=== PATIENT | male | born 1970 | race Caucasian/White ===

== ENCOUNTER → 2016-08-02 | Outpatient (REF) | payer OTHER | LOC: M SFHCPLAZ 11:11 | PROVIDERS: ATTEND Family Medicine | DX: Z11.59 Encounter for screening for other viral diseases (principal); Z11.4 Encounter for screening for human immunodeficiency virus [HIV] ==

== ENCOUNTER → 2016-08-12 | Outpatient (CLI) | payer OTHER | LOC: M SMT 10:23 | PROVIDERS: ATTEND Physician Assistant Medical | DX: E11.9 Type 2 diabetes mellitus without complications (principal); E55.9 Vitamin D deficiency, unspecified; E78.2 Mixed hyperlipidemia ==

== ENCOUNTER → 2017-02-18 | Outpatient (REF) | payer OTHER ==
[~2017-02-18] MED LIST: CORE10CA PO; CYCL10TA PO; JARD1TAB PO; METF500T13 PO; OMEP40CA2 PO; PERC5TAB12 PO; RAMI10CA PO
[2017-02-18 12:00] LABS: ANION GAP 9 MEQ/L (8-16); BLOOD UREA NITROGEN 17 MG/DL (7-18); CALCIUM LEVEL 8.9 MG/DL (8.5-10.1); CARBON DIOXIDE LEVEL 28 MEQ/L (21-32); CHLORIDE LEVEL 106 MEQ/L (98-107); CREATININE FOR GFR 1.06 MG/DL (0.70-1.30); GLOMERULAR FILTRATION RATE > 60.0 (>60); GLUCOSE, FASTING 145 MG/DL (70-105); POTASSIUM SERUM 4.1 MEQ/L (3.5-5.1); SODIUM LEVEL 143 MEQ/L (136-145)
== END ==
LOC: M LABDRAW1 08:45
PROVIDERS: ATTEND Physician Assistant Medical
DX: E11.9 Type 2 diabetes mellitus without complications (principal)

== ENCOUNTER 2017-02-19 11:02 | Emergency (ER) | payer OTHER ==
[~2017-02-19] VITALS: Ht 185.4 cm; Wt 132.5 kg
[2017-02-19] MEDS ORDERED: METF500T13 PO (11:41)
[2017-02-19] MEDS ORDERED: OMEP40CA2 PO (11:41)
[2017-02-19] MEDS ORDERED: JARD1TAB PO (11:41)
[2017-02-19] MEDS ORDERED: CORE10CA PO (11:41)
[2017-02-19] MEDS ORDERED: RAMI10CA PO (11:41)
[2017-02-19] MEDS ORDERED: MORPHINE 4 MG/ML 1ML SYRINGE IV ONE (12:15)
--- NOTE | 2017-02-19 13:22 | REP ---
Lumbar spine series: Five views. History: Low back pain. Comparison study June 26, 2015. Findings: Five views of the lumbar spine show preserved vertebral body heights and normal alignment. There is degenerative disc narrowing with discogenic spurring at L4-5 and L3-4, unchanged from the comparison study. Minimal discogenic spurring is seen at the upper lumbar levels. Pedicles and posterior elements are intact. There is no evidence of spondylolysis or spondylolisthesis. Psoas margins are symmetric. Sacrum and SI joints are unremarkable. Impression: Degenerative disc changes at L3-4 and L4-5 unchanged from comparison radiography June 26, 2015. Signed by Jean Ardnt MD 02/19/2017 06:33 P
[2017-02-19] MEDS ORDERED: PERC5TAB12 PO (13:23)
[2017-02-19] MEDS ORDERED: CYCL10TA PO (13:33)
[2017-02-19 13:34] VITALS: BP 121/68
== END 2017-02-19 13:36 | disposition home or self-care (01) ==
LOC: M ED 11:02
DX: M54.5 Low back pain (principal); M51.36 Other intervertebral disc degeneration, lumbar region; I48.91 Unspecified atrial fibrillation; E11.9 Type 2 diabetes mellitus without complications; I10 Essential (primary) hypertension; Z79.84 Long term (current) use of oral hypoglycemic drugs; Z79.899 Other long term (current) drug therapy

== ENCOUNTER → 2017-07-28 | Outpatient (REF) | payer OTHER | LOC: M SFHCPLAZ 16:02 | DX: L57.0 Actinic keratosis (principal) ==

== ENCOUNTER → 2017-08-29 | Outpatient (REF) | payer OTHER ==
[2017-08-29 11:55] LABS: ANION GAP 10 MEQ/L (8-16); BLOOD UREA NITROGEN 18 MG/DL (7-18); CALCIUM LEVEL 8.8 MG/DL (8.5-10.1); CARBON DIOXIDE LEVEL 27 MEQ/L (21-32); CHLORIDE LEVEL 105 MEQ/L (98-107); CHOLESTEROL LEVEL 185 MG/DL (<200); CHOLESTEROL RISK RATIO 6.607 (<5); CREATININE FOR GFR 0.87 MG/DL (0.70-1.30); GLOMERULAR FILTRATION RATE > 60.0 (>60); GLUCOSE, FASTING 141 MG/DL (70-100); HDL CHOLESTEROL 28 MG/DL (>40); NON-HDL-C 157 MG/DL; SODIUM LEVEL 142 MEQ/L (136-145); TRIGLYCERIDES LEVEL 280 MG/DL (<150)
[2017-08-29 12:38] LABS: TOTAL 25(OH) VITAMIN D 46.7 NG/ML (30.0-100.0)
== END ==
LOC: M LABDRAW1 09:38
DX: E55.9 Vitamin D deficiency, unspecified (principal); E11.9 Type 2 diabetes mellitus without complications
CPT/HCPCS: 84443

== ENCOUNTER 2017-11-13 03:32 | Emergency (ER) | payer OTHER ==
[2017-11-13] MEDS: dexameTHASONE 20 MG/5 ML VIAL (J1100) IV (03:58)
[2017-11-13] MEDS: diphenhydrAMINE INJ 50MG/ML VIAL (J1200) IV (03:58)
== END 2017-11-13 05:29 | disposition home or self-care (01) ==
LOC: M ED 03:32
DX: T78.40XA Allergy, unspecified, initial encounter (principal); I48.91 Unspecified atrial fibrillation; E11.9 Type 2 diabetes mellitus without complications; I10 Essential (primary) hypertension; E78.5 Hyperlipidemia, unspecified; Z79.01 Long term (current) use of anticoagulants; Z79.899 Other long term (current) drug therapy
CPT/HCPCS: J1200

== ENCOUNTER → 2019-02-03 | Outpatient (CLI) | payer OTHER ==
[~2019-02-03] MED LIST changes: +ELIQ5TAB; +LOVA40TA; -RAMI10CA PO; +RAMI1CAP26 PO
--- NOTE | 2019-02-03 12:29 | REP ---
CERVICAL SPINE SERIES: REASON FOR EXAM: Upper extremity radicular symptoms. No history of trauma whatsoever. There are no priors for comparison. FINDINGS: Seven views of the cervical spine show no acute fracture, dislocation or subluxation. The intervertebral disc spaces are symmetric and well maintained. The facet joints are well aligned bilaterally. The intervertebral foramina are patent bilaterally and the neural canal is not encroached upon. There is no destructive osseous lesion. Flexion and extension does not appear to be particularly limited radiographically. The anterior spinal soft tissues appear unremarkable. The dens cannot be effectively evaluated secondary to the superimposition of osseous structures and/or dentition on all views. Although this plain radiographic evaluation of the cervical spine shows no evidence of a fracture, it should be remembered that CT is much more sensitive than plain radiography of the C-spine in detecting fractures. If this examination was ordered to rule out a fracture, then CT of the cervical spine is recommended. IMPRESSION: Unremarkable cervical spine series. Electronically Signed by Sourav Vora DO 02/03/2019 12:41 P
== END ==
LOC: M ADAMS 10:11
PROVIDERS: ATTEND Family Medicine
DX: M54.12 Radiculopathy, cervical region (principal)

== ENCOUNTER → 2019-02-23 | Outpatient (CLI) | payer OTHER ==
--- NOTE | 2019-02-23 09:58 | REP ---
MRI of the cervical spine without contrast Indication: Cervical radiculopathy. Comparison: Cervical spine series of 02/03/2019. Technique: MRI of the cervical spine was performed utilizing sagittal T1 FLAIR, STIR, and T2 weighted imaging as well as axial T1 and T2-weighted imaging. No intravenous contrast was administered. Findings: There is straightening of cervical lordosis which may be positional and/or related to muscle spasm. There is normal alignment of the cervical spine. Vertebral body heights and intervertebral disc heights are maintained. There is no bone marrow edema. The visualized spinal cord is normal in signal intensity. There is partial fatty atrophy of the posterior paraspinal muscles. Level specific observations: C2-C3: Right uncovertebral joint hypertrophy. No significant spinal canal stenosis or neural foraminal narrowing. C3-C4: No significant spinal canal stenosis or neural foraminal narrowing. C4-C5: Right uncovertebral joint hypertrophy. No significant spinal canal stenosis or neural foraminal narrowing. C5-C6: Right paracentral/foraminal disc extrusion with inferior and superior migration. No significant spinal canal stenosis. At least moderate right neural foraminal narrowing. C6-C7: No significant spinal canal stenosis or neural foraminal narrowing. C7-T1 (sagittal images only): No significant spinal canal stenosis or neural foraminal narrowing. Impression: Cervical spondylosis with multilevel uncovertebral joint hypertrophy. Right paracentral/foraminal disc extrusion at C5-C6 with at least moderate right neural foraminal narrowing at this level. No significant spinal canal stenosis within the cervical spine. Straightening of cervical lordosis which may be positional and/or related to muscle spasm. Electronically Signed by Kaylie Richard MD 02/23/2019 09:50 A
== END ==
LOC: M RAD 08:19
PROVIDERS: ATTEND Family Medicine
DX: M54.12 Radiculopathy, cervical region (principal)

== ENCOUNTER → 2019-09-13 | Outpatient (REF) | payer OTHER ==
[~2019-09-13] MED LIST changes: -OMEP40CA2 PO; +OMEP40CA97 PO
[2019-09-13 13:14] LABS: ALBUMIN 3.9 GM/DL (3.2-5.2); ALT/SGPT 35 U/L (12-78); BILIRUBIN,TOTAL 0.6 MG/DL (0.2-1.0); BLOOD UREA NITROGEN 18 MG/DL (7-18); CALCIUM LEVEL 8.9 MG/DL (8.5-10.1); CARBON DIOXIDE LEVEL 31 MEQ/L (21-32); CHLORIDE LEVEL 104 MEQ/L (98-107); CHOLESTEROL LEVEL 205 MG/DL (<200); CHOLESTEROL RISK RATIO 6.406 (<5); CREATININE FOR GFR 0.97 MG/DL (0.70-1.30); GLOMERULAR FILTRATION RATE > 60.0 (>60); GLUCOSE, FASTING 165 MG/DL (70-100); HDL CHOLESTEROL 32 MG/DL (>40); LDL CHOLESTEROL 117 MG/DL (<100); NON-HDL-C 173 MG/DL; POTASSIUM SERUM 4.3 MEQ/L (3.5-5.1); SODIUM LEVEL 138 MEQ/L (136-145); TRIGLYCERIDES LEVEL 281 MG/DL (<150)
[2019-09-13 13:21] LABS: TOTAL 25(OH) VITAMIN D 25.4 NG/ML (30.0-100.0)
[2019-09-13 13:40] LABS: CREATININE, URINE 78.3 MG/DL; MALB URINE SIEMENS 35.5 MG/L; MAU/CREAT RATIO 45.3 MCG/MG (0.0-30.0)
== END ==
LOC: M LABDRWAD 12:23
PROVIDERS: ATTEND Nurse Practitioner Family
DX: E78.2 Mixed hyperlipidemia (principal); E55.9 Vitamin D deficiency, unspecified; E11.9 Type 2 diabetes mellitus without complications

== ENCOUNTER → 2019-10-01 | Outpatient (CLI) | payer OTHER ==
[~2019-10-01] MED LIST changes: +CYCL-707 PO; -CYCL10TA PO
--- NOTE | 2019-10-01 15:28 | REPPI ---
REASON FOR EXAM: Leg pain. Three limited views were obtained and compared to the lumbar series of 02/19/2017. Vertebral body height and alignment is unchanged. Disc spaces are unchanged with some narrowing at L3-4 through L5-S1 status quo. There is anterior lipping status quo. No significant change from the prior exam on this limited exam. Electronically Signed by Sourav Vora DO 10/01/2019 04:18 P
== END ==
LOC: M PLAIMG 12:18
PROVIDERS: ATTEND Student in an Organized Health Care Education/Training Program
DX: M79.661 Pain in right lower leg (principal)

== ENCOUNTER → 2019-10-06 | Outpatient (CLI) | payer OTHER ==
--- NOTE | 2019-10-06 13:56 | REP ---
MRI RIGHT KNEE: MRI RIGHT KNEE: TECHNIQUE: Axial proton density fat saturation, sagittal proton density T2 STIR, water excitation, coronal proton density, proton density fat saturation. There is a complex tear in the posterior horn of the medial meniscus. There is truncation of the anterior horn of the medial meniscus. The lateral meniscus demonstrates no tear. The cruciate and collateral ligaments are intact. The extensor mechanism is intact. There is mild to moderate chondromalacia of the patella with some fissuring centrally at the patellar cartilage. There is mild diffuse chondromalacia on the lateral femoral condyle and tibial plateau. There is mild to moderate chondromalacia along the medial femoral condyle of the tibial plateau. There is some minor subchondral marrow edema centrally in the tibial plateau. No other bone marrow signal is seen. There is a small joint effusion. Septated Almonte's cyst is seen medially extending for a craniocaudal dimension of about 4.7 cm with a maximum thickness inferiorly about 12 mm. IMPRESSION: Complex tear posterior horn of the medial meniscus. Diffuse chondromalacia. There is some fissuring centrally of the patellar cartilage. Small joint effusion. Septated Almonte's cyst medially with a craniocaudal length of 4.7 cm in maximum thickness inferiorly 1.2 cm. Electronically Signed by Kiko Palumbo MD 10/06/2019 04:21 P
--- NOTE | 2019-10-06 14:05 | REP ---
MRI LUMBAR SPINE WITHOUT CONTRAST: Axial and sagittal images are performed. Multiple sequences obtained. There is no compression fracture. There is normal lumbar lordosis and alignment. No abnormal bone marrow signal is seen. There is loss of water signal and disc degeneration at L3-4, L4-5, and L5-S1. There is mild disc space narrowing at all three of these levels. The conus is unremarkable. No significant disc bulging or herniation is seen at L1-2 or L2-3. There is no central canal stenosis or foraminal narrowing at these levels. At L3-4, there is mild diffuse disc bulging asymmetrically more so laterally on the right. There is moderate hypertrophic change of the posterior facet joints. There is extruded disc material extending into the superior aspect of the right neural foramen. There is moderate severe right-sided foraminal narrowing at this level without left-sided foraminal narrowing. There is moderate right lateral recessed stenosis and mild central canal stenosis. At L4-5, there is mild to moderate diffuse disc bulging with small central disc protrusion. There is compression upon the thecal sac with mild central canal stenosis. There are mild hypertrophic changes at the posterior facet joints. There is mild left-sided foraminal narrowing. IMPRESSION: At L3-4, there is mild to moderate diffuse disc bulging asymmetrically more so to the right of midline with extrusion superiorly, into the superior aspect of the right neural foramen. There are also moderate hypertrophic changes of the posterior facets. There is moderately severe right-sided foraminal narrowing at this level, moderate right lateral recess stenosis and mild central canal stenosis. At L4-5, there is mild to moderate diffuse disc bulging with central disc protrusion mildly impressing on the anterior thecal sac and causing mild central canal stenosis. L5-S1 there is mild diffuse disc bulging with central disc protrusion extending up to and slightly indenting the anterior thecal sac without central canal stenosis. There are hypertrophic changes at the posterior facets. There is mild left-sided foraminal narrowing. Electronically Signed by Kiko Palumbo MD 10/06/2019 04:22 P
== END ==
LOC: M RAD 09:01
PROVIDERS: ATTEND Physician Assistant
DX: M25.561 Pain in right knee (principal); M51.16 Intervertebral disc disorders with radiculopathy, lumbar region

== ENCOUNTER 2020-01-13 10:00 | Inpatient (IN) | payer OTHER ==
[~2020-01-13 10:00] MED LIST changes: +GI COCKTAIL 50ML BTL(HYOSCYAMINE/MAALOX/LIDOCAINE VISCOUS)(1:3:1) As Ordered ONE; +GI COCKTAIL 50ML BTL(HYOSCYAMINE/MAALOX/LIDOCAINE VISCOUS)(1:3:1) ONE; +ISOVUE-370 76% 100ML VIAL As Ordered ONE; +LORazepam 2 MG/ML VIAL As Ordered ONE; +LORazepam 2 MG/ML VIAL ONE; +ONDANSETRON 4MG/2ML VIAL As Ordered ONE; +ONDANSETRON 4MG/2ML VIAL ONE; +SUCRALFATE 1 GM TAB ONE
[2020-01-13] MEDS ORDERED: SUCRALFATE 1 GM TAB As Ordered ONE (10:29)
[2020-01-13] MEDS ORDERED: MORPHINE 4 MG/ML 1ML VIAL/SYRINGE (J2270) ONE (11:31)
[2020-01-13] MEDS ORDERED: ZOSYN 3.375GM VIAL (J2543) ONE (11:31)
[2020-01-13] MEDS ORDERED: ONDANSETRON 4MG/2ML VIAL ONE (11:31)
[2020-01-13] MEDS ORDERED: ONDANSETRON 4MG/2ML VIAL As Ordered ONE (11:31)
[2020-01-13] MEDS ORDERED: MORPHINE 4 MG/ML 1ML VIAL/SYRINGE (J2270) As Ordered ONE (11:31)
[2020-01-13] MEDS ORDERED: ZOSYN 3.375GM VIAL (J2543) As Ordered ONE (14:41)
[2020-01-13] MEDS ORDERED: atenoloL 25 MG TAB As Ordered ONE (22:18)
[2020-01-13] MEDS ORDERED: ZOSYN 4.5GM VIAL (J2543) As Ordered ONE (22:18)
[2020-01-13] MEDS ORDERED: ZOSYN 4.5GM VIAL (J2543) ONE (22:18)
[2020-01-13] MEDS ORDERED: atenoloL 25 MG TAB ONE (22:18)
[2020-01-13] MEDS ORDERED: LEVEMIR (INSULIN DETEMIR) 1 UNITS/0.01ML ONE (22:18)
[2020-01-13] MEDS ORDERED: LEVEMIR (INSULIN DETEMIR) 1 UNITS/0.01ML As Ordered ONE (22:20)
[2020-01-14] MEDS ORDERED: ZOSYN 4.5GM VIAL (J2543) As Ordered ONE ×3 (06:03→23:30)
[2020-01-14] MEDS ORDERED: ZOSYN 4.5GM VIAL (J2543) ONE ×3 (06:03→22:22)
[2020-01-14] MEDS ORDERED: LEVEMIR (INSULIN DETEMIR) 1 UNITS/0.01ML ONE ×2 (09:31→22:22)
[2020-01-14] MEDS ORDERED: PANTOPRAZOLE 40MG VIAL (C9113 PER 1) As Ordered ONE (09:31)
[2020-01-14] MEDS ORDERED: atenoloL 25 MG TAB ONE ×2 (09:31→22:22)
[2020-01-14] MEDS ORDERED: PANTOPRAZOLE 40MG VIAL (C9113 PER 1) ONE (09:31)
[2020-01-14] MEDS ORDERED: atenoloL 25 MG TAB As Ordered ONE ×2 (09:31→20:36)
[2020-01-14] MEDS ORDERED: LEVEMIR (INSULIN DETEMIR) 1 UNITS/0.01ML As Ordered ONE ×2 (09:32→20:37)
[2020-01-14] MEDS ORDERED: PERCOCET 5MG/325MG TAB ONE ×2 (16:47→22:22)
[2020-01-14] MEDS ORDERED: PERCOCET 5MG/325MG TAB As Ordered ONE ×2 (16:47→22:22)
[2020-01-15] MEDS ORDERED: MORPHINE 4 MG/ML 1ML VIAL/SYRINGE (J2270) As Ordered ONE (06:27)
[2020-01-15] MEDS ORDERED: ZOSYN 4.5GM VIAL (J2543) As Ordered ONE ×2 (06:28→15:58)
[2020-01-15] MEDS ORDERED: PANTOPRAZOLE 40MG VIAL (C9113 PER 1) As Ordered ONE (09:32)
[2020-01-15] MEDS ORDERED: atenoloL 25 MG TAB As Ordered ONE (09:34)
[2020-01-15] MEDS ORDERED: LEVEMIR (INSULIN DETEMIR) 1 UNITS/0.01ML As Ordered ONE (09:38)
[2020-01-15] MEDS ORDERED: PERCOCET 5MG/325MG TAB As Ordered ONE ×2 (12:24→19:47)
[2020-01-15] MEDS ORDERED: ACETAMINOPHEN TAB 650MG DOSE (2X325MG) As Ordered ONE (13:40)
== END 2020-01-15 22:15 | disposition other institution (70) | DRG 446 ==
LOC: M ED 10:00 → M MSPAV 14:37
PROVIDERS: ADMIT Internal Medicine; ATTEND Internal Medicine
DX: K81.0 Acute cholecystitis (principal); I48.91 Unspecified atrial fibrillation; E78.5 Hyperlipidemia, unspecified; I10 Essential (primary) hypertension; Z79.899 Other long term (current) drug therapy; Z79.01 Long term (current) use of anticoagulants

== ENCOUNTER 2020-02-08 19:40 | Emergency (ER) | payer OTHER ==
[~2020-02-08] VITALS: Ht 185.4 cm; Wt 122.7 kg
[~2020-02-08 19:40] MED LIST changes: -GI COCKTAIL 50ML BTL(HYOSCYAMINE/MAALOX/LIDOCAINE VISCOUS)(1:3:1) As Ordered ONE; -GI COCKTAIL 50ML BTL(HYOSCYAMINE/MAALOX/LIDOCAINE VISCOUS)(1:3:1) ONE; -ISOVUE-370 76% 100ML VIAL As Ordered ONE; -LORazepam 2 MG/ML VIAL As Ordered ONE; -LORazepam 2 MG/ML VIAL ONE; -ONDANSETRON 4MG/2ML VIAL As Ordered ONE; -ONDANSETRON 4MG/2ML VIAL ONE; -SUCRALFATE 1 GM TAB ONE
[2020-02-08 20:33] LABS: BASO # 0.1 10^3/uL (0.0-0.2); BASO % 0.4 % (0.0-1.0); EOS # 0.2 10^3/uL (0.0-0.5); EOS % 1.4 % (0.0-3.0); HEMATOCRIT 47.5 % (42.0-52.0); HEMOGLOBIN 15.6 g/dl (13.5-17.5); LYMPH # 1.8 10^3/uL (1.5-5.0); LYMPH % 11.9 % (24.0-44.0); MEAN CORPUSCULAR HGB CONC 32.8 g/dl (32.0-36.5); MEAN CORPUSCULAR VOLUME 85.3 fl (80.0-96.0); MONO # 1.6 10^3/uL (0.0-0.8); MONO % 10.8 % (0.0-5.0); NEUTROPHILS # 10.9 10^3/uL (1.5-8.5); NEUTROPHILS % 74.3 % (36.0-66.0); PLATELET COUNT, AUTOMATED 170 10^3/uL (150-450); RED BLOOD COUNT 5.57 10^6/uL (4.30-6.10); WHITE BLOOD COUNT 14.7 10^3/uL (4.0-10.0)
[2020-02-08] MEDS ORDERED: NS 3,680 ML in IV 1 EA IV ONE (20:45)
[2020-02-08 20:53] LABS: ALBUMIN 3.2 GM/DL (3.2-5.2); ALT/SGPT 19 U/L (12-78); BILIRUBIN,DIRECT 0.2 MG/DL (0.0-0.2); BILIRUBIN,TOTAL 0.6 MG/DL (0.2-1.0); LIPASE 298 U/L (73-393)
[2020-02-08] MEDS ORDERED: PIPERACILLIN/TAZOBACTAM SOD 3.375 GM in D5W MINI-BAG PLUS 50 ML IV ONE (21:45)
[2020-02-08 22:03] LABS: BLOOD UREA NITROGEN 16 MG/DL (7-18); CALCIUM LEVEL 9.2 MG/DL (8.5-10.1); CARBON DIOXIDE LEVEL 29 MEQ/L (21-32); CHLORIDE LEVEL 100 MEQ/L (98-107); CREATININE FOR GFR 0.93 MG/DL (0.70-1.30); GLOMERULAR FILTRATION RATE > 60.0 (>60); GLUCOSE, FASTING 154 MG/DL (70-100); POTASSIUM SERUM 3.8 MEQ/L (3.5-5.1); SODIUM LEVEL 134 MEQ/L (136-145)
[2020-02-08] MEDS ORDERED: ISOVUE-370 76% 100ML VIAL As Ordered ONE (22:19)
--- NOTE | 2020-02-08 23:34 | REPVR ---
PROCEDURE INFORMATION: Exam: CT Abdomen And Pelvis With Contrast Exam date and time: 02/08/2020 10:24 PM Age: 49 years old Clinical indication: Other: Biliary drain x 3 wks; Prior surgery; Surgery date: <1 month TECHNIQUE: Imaging protocol: Computed tomography of the abdomen and pelvis with intravenous contrast. Radiation optimization: All CT scans at this facility use at least one of these dose optimization techniques: automated exposure control; mA and/or kV adjustment per patient size (includes targeted exams where dose is matched to clinical indication); or iterative reconstruction. Contrast material: ISOVUE 370; Contrast volume: 100 ml; Contrast route: INTRAVENOUS (IV); COMPARISON: CT ABD PELVIS WITH CONTRAST 01/13/2020 10:00 AM FINDINGS: Tubes, catheters and devices: Cholecystostomy drain is seen in the gallbladder lumen. A biliary drain is seen. Liver: Normal. No mass. Gallbladder and bile ducts: There is gallbladder wall thickening with the Fatoumata cholecystic fat stranding. No fluid collections. Cholelithiasis. Pancreas: Normal. No ductal dilation. Spleen: Normal. No splenomegaly. Adrenals: Normal. No mass. Kidneys and ureters: Normal. No hydronephrosis. Stomach and bowel: Unremarkable. No obstruction. No mucosal thickening. Appendix: No evidence of appendicitis. Intraperitoneal space: Unremarkable. No free air. No significant fluid collection. Vasculature: Unremarkable. No abdominal aortic aneurysm. Lymph nodes: Unremarkable. No enlarged lymph nodes. Bladder: Unremarkable as visualized. Reproductive: Unremarkable as visualized. Bones/joints: Unremarkable. No acute fracture. Soft tissues: Unremarkable. IMPRESSION: Cholecystostomy drain with its tip in the gallbladder lumen. Cholelithiasis and gallbladder wall thickening with pericholecystic stranding. No fluid collections. Biliary drain is seen in place. Electronically signed by: Alfred Salazar On 02/08/2020 23:34:01 PM
[2020-02-09 00:18] VITALS: BP 129/73
[2020-02-09] MEDS ORDERED: FLAG500T PO (02:04)
[2020-02-09] MEDS ORDERED: KEFL500C17 PO (02:04)
--- NOTE | 2020-03-10 12:08 | REP ---
CHEST X-RAY CLINICAL: Fever of unknown origin. TECHNIQUE: PA and lateral. COMPARISON: 01/13/2020. FINDINGS: Mediastinum and cardiac silhouette normal. Lung villagran clear. No consolidation, effusion, or pneumothorax. Skeletal structures are intact. IMPRESSION: No acute cardiopulmonary process or focal consolidation. MTDD
== END 2020-02-09 02:26 | disposition home or self-care (01) ==
LOC: M ED 19:40
DX: T81.89XA Other complications of procedures, not elsewhere classified, initial encounter (principal); K81.9 Cholecystitis, unspecified; R50.9 Fever, unspecified; D72.829 Elevated white blood cell count, unspecified; E11.9 Type 2 diabetes mellitus without complications; I10 Essential (primary) hypertension; E78.5 Hyperlipidemia, unspecified; Z79.01 Long term (current) use of anticoagulants; Z79.899 Other long term (current) drug therapy; Z79.84 Long term (current) use of oral hypoglycemic drugs
CPT/HCPCS: 71046; 74177; 80048; 80076; 81001; 83605; 83690; 85025; 87040; 96361; 96365; 99283; J2543; Q9967

== ENCOUNTER → 2020-03-07 | Outpatient (CLI) | payer OTHER ==
[~2020-03-07] MED LIST changes: +FLAG500T PO; +KEFL500C17 PO
[2020-03-07 13:57] LABS: HEMATOCRIT 48.3 % (42.0-52.0); HEMOGLOBIN 15.6 g/dl (13.5-17.5); MEAN CORPUSCULAR HEMOGLOBIN 27.7 pg (27.0-33.0); MEAN CORPUSCULAR HGB CONC 32.3 g/dl (32.0-36.5); MEAN CORPUSCULAR VOLUME 85.8 fl (80.0-96.0); PLATELET COUNT, AUTOMATED 196 10^3/uL (150-450); RED BLOOD COUNT 5.63 10^6/uL (4.30-6.10); WHITE BLOOD COUNT 10.7 10^3/uL (4.0-10.0)
[2020-03-07 14:07] LABS: INR 1.03; PROTHROMBIN TIME 13.7 SECONDS (12.5-14.3)
[2020-03-07 14:08] LABS: PARTIAL THROMBOPLASTIN TIME 29.2 SECONDS (24.2-38.5)
[2020-03-07 14:33] LABS: ALBUMIN 3.4 GM/DL (3.2-5.2); ALT/SGPT 26 U/L (12-78); BILIRUBIN,TOTAL 0.3 MG/DL (0.2-1.0); BLOOD UREA NITROGEN 11 MG/DL (7-18); CALCIUM LEVEL 9.4 MG/DL (8.5-10.1); CARBON DIOXIDE LEVEL 31 MEQ/L (21-32); CHLORIDE LEVEL 101 MEQ/L (98-107); CHOLESTEROL LEVEL 216 MG/DL (<200); CHOLESTEROL RISK RATIO 5.142 (<5); CREATININE FOR GFR 0.84 MG/DL (0.70-1.30); GLOMERULAR FILTRATION RATE > 60.0 (>60); GLUCOSE, FASTING 114 MG/DL (70-100); HDL CHOLESTEROL 42 MG/DL (>40); LDL CHOLESTEROL 116 MG/DL (<100); NON-HDL-C 174 MG/DL; NT-PRO BNP 101 PG/ML (<125); POTASSIUM SERUM 4.6 MEQ/L (3.5-5.1); SODIUM LEVEL 137 MEQ/L (136-145); TOTAL PROTEIN 7.2 GM/DL (6.4-8.2); TRIGLYCERIDES LEVEL 288 MG/DL (<150)
== END ==
LOC: M PLALAB 12:02
PROVIDERS: ATTEND Family Medicine
DX: Z01.812 Encounter for preprocedural laboratory examination (principal); I10 Essential (primary) hypertension; E11.8 Type 2 diabetes mellitus with unspecified complications

== ENCOUNTER → 2020-09-22 | Outpatient (REF) | payer OTHER ==
[2020-09-23 20:07] LABS: SEX HORMONE BINDING GLOBULIN 17.9 nmol/L (16.5-55.9)
== END ==
LOC: M SFHCPLAZ 08:11
PROVIDERS: ATTEND Family Medicine
DX: N52.9 Male erectile dysfunction, unspecified (principal)

== ENCOUNTER → 2020-11-20 | Outpatient (REF) | payer OTHER ==
[2020-11-20 20:00] LABS: CREATININE, URINE 73.4 MG/DL; MALB URINE SIEMENS 12.7 MG/L; MAU/CREAT RATIO 17.3 MCG/MG (0.0-30.0)
== END ==
LOC: M LAB REF 17:15
PROVIDERS: ATTEND Nurse Practitioner Family
DX: E11.9 Type 2 diabetes mellitus without complications (principal)

== ENCOUNTER → 2021-07-27 | Outpatient (REF) | payer OTHER ==
[~2021-07-27] MED LIST changes: +OMEP40CA4 PO; -OMEP40CA97 PO
[2021-07-27 17:50] LABS: CREATININE, URINE 70.1 MG/DL; MALB URINE SIEMENS 11.1 MG/L; MAU/CREAT RATIO 15.8 MCG/MG (0.0-30.0)
== END ==
LOC: M LAB REF 16:39
PROVIDERS: ATTEND Nurse Practitioner Family
DX: E11.9 Type 2 diabetes mellitus without complications (principal)

== ENCOUNTER → 2022-01-01 | Outpatient (CLI) | payer OTHER ==
[2022-01-01 16:00] LABS: ALBUMIN 3.8 GM/DL (3.2-5.2); ALT/SGPT 43 U/L (12-78); BILIRUBIN,TOTAL 0.5 MG/DL (0.2-1.0); BLOOD UREA NITROGEN 11 MG/DL (7-18); CALCIUM LEVEL 9.2 MG/DL (8.5-10.1); CARBON DIOXIDE LEVEL 30 MEQ/L (21-32); CHLORIDE LEVEL 105 MEQ/L (98-107); CHOLESTEROL LEVEL 138 MG/DL (<200); CHOLESTEROL RISK RATIO 4.312 (<5); CREATININE FOR GFR 0.87 MG/DL (0.70-1.30); GLOMERULAR FILTRATION RATE > 60.0 (>60); GLUCOSE, FASTING 129 MG/DL (70-100); HDL CHOLESTEROL 32 MG/DL (>40); LDL CHOLESTEROL 70 MG/DL (<100); NON-HDL-C 106 MG/DL; POTASSIUM SERUM 4.6 MEQ/L (3.5-5.1); SODIUM LEVEL 139 MEQ/L (136-145); TOTAL PROTEIN 6.7 GM/DL (6.4-8.2); TRIGLYCERIDES LEVEL 180 MG/DL (<150)
[2022-01-01 17:12] LABS: TOTAL 25(OH) VITAMIN D 27.8 NG/ML (30.0-100.0)
== END ==
LOC: M PLALAB 10:51
PROVIDERS: ATTEND Nurse Practitioner Family
DX: E78.2 Mixed hyperlipidemia (principal); E55.9 Vitamin D deficiency, unspecified

== ENCOUNTER → 2022-03-28 | Outpatient (CLI) | payer OTHER ==
[2022-03-28 10:43] LABS: BASO # 0.1 10^3/uL (0.0-0.2); BASO % 0.7 % (0.0-1.0); EOS # 0.3 10^3/uL (0.0-0.5); EOS % 2.7 % (0.0-3.0); HEMATOCRIT 53.7 % (42.0-52.0); HEMOGLOBIN 17.4 g/dl (13.5-17.5); LYMPH # 2.3 10^3/uL (1.5-5.0); LYMPH % 24.4 % (24.0-44.0); MEAN CORPUSCULAR HEMOGLOBIN 28.2 pg (27.0-33.0); MEAN CORPUSCULAR HGB CONC 32.4 g/dl (32.0-36.5); MEAN CORPUSCULAR VOLUME 86.9 fl (80.0-96.0); MONO # 0.8 10^3/uL (0.0-0.8); MONO % 8.8 % (2.0-8.0); NEUTROPHILS # 5.9 10^3/uL (1.5-8.5); NEUTROPHILS % 62.2 % (36.0-66.0); PLATELET COUNT, AUTOMATED 184 10^3/uL (150-450); RED BLOOD COUNT 6.18 10^6/uL (4.30-6.10); WHITE BLOOD COUNT 9.5 10^3/uL (4.0-10.0)
== END ==
LOC: M PLALAB 08:18
PROVIDERS: ATTEND Nurse Practitioner Family
DX: D75.1 Secondary polycythemia (principal)

== ENCOUNTER → 2022-07-25 | Outpatient (REF) | payer OTHER ==
[2022-07-25 18:12] LABS: CREATININE, URINE 134.4 MG/DL
[2022-07-25 18:13] LABS: MAU/CREAT RATIO 2.9 MCG/MG (0.0-30.0)
== END ==
LOC: M LAB REF 17:10
PROVIDERS: ATTEND Nurse Practitioner Family
DX: E11.9 Type 2 diabetes mellitus without complications (principal)

== ENCOUNTER → 2022-12-03 | Outpatient (CLI) | payer OTHER ==
[2022-12-03 10:36] LABS: HEMATOCRIT 52.8 % (42.0-52.0); HEMOGLOBIN 17.3 g/dl (13.5-17.5); MEAN CORPUSCULAR HEMOGLOBIN 28.2 pg (27.0-33.0); MEAN CORPUSCULAR HGB CONC 32.8 g/dl (32.0-36.5); PLATELET COUNT, AUTOMATED 185 10^3/uL (150-450); RED BLOOD COUNT 6.14 10^6/uL (4.30-6.10); WHITE BLOOD COUNT 9.8 10^3/uL (4.0-10.0)
[2022-12-03 11:02] LABS: ALBUMIN 4.2 G/DL (3.2-5.2); ALKALINE PHOSPHATASE 64 U/L (46-116); ALT/SGPT 46 U/L (7.0-40); AST/SGOT 19 U/L (<34); BILIRUBIN,TOTAL 0.9 MG/DL (0.3-1.2); BLOOD UREA NITROGEN 18 MG/DL (9-23); CALCIUM LEVEL 9.2 MG/DL (8.5-10.1); CARBON DIOXIDE LEVEL 29 MMOL/L (20-31); CHLORIDE LEVEL 102 MMOL/L (98-107); CREATININE FOR GFR 0.93 MG/DL (0.70-1.30); GLOMERULAR FILTRATION RATE > 60.0 (>56); GLUCOSE, FASTING 164 MG/DL (60-100); POTASSIUM SERUM 4.2 MMOL/L (3.5-5.1); SODIUM LEVEL 140 MMOL/L (136-145); TOTAL PROTEIN 6.5 G/DL (5.7-8.2)
[2022-12-03 11:06] LABS: THYROID STIMULATING HORMONE 1.962 uIU/ML (0.55-4.78)
[2022-12-03 11:15] LABS: CREATININE, URINE 82.4 MG/DL
[2022-12-03 11:16] LABS: MAU/CREAT RATIO 24.2 MCG/MG (0.0-30.0)
== END ==
LOC: M PLALAB 08:41
PROVIDERS: ATTEND Family Medicine
DX: G47.33 Obstructive sleep apnea (adult) (pediatric) (principal); I10 Essential (primary) hypertension; E55.9 Vitamin D deficiency, unspecified; Z13.29 Encounter for screening for other suspected endocrine disorder

== ENCOUNTER → 2022-12-03 | Outpatient (CLI) | payer OTHER ==
[2022-12-03 11:05] LABS: CHOLESTEROL RISK RATIO 5.05 (<5); HDL CHOLESTEROL 29.1 MG/DL (>40); LDL CHOLESTEROL 55.7 MG/DL (<100); NON-HDL-C 117.9 MG/DL
== END ==
LOC: M PLALAB 08:44
DX: E78.2 Mixed hyperlipidemia (principal)

== ENCOUNTER → 2023-07-16 | Outpatient (RCR) | payer OTHER | LOC: M PT 06-18 08:59 → M OT 06-30 08:49 → M PT 06-30 09:14 → M OT 07-07 08:49 → M PT 07-07 08:50 → M OT 07-09 09:48 → M PT 07-14 08:53 → M OT 07-14 08:53 → M PT 09:15 → M OT 09:16 | PROVIDERS: ATTEND Physician Assistant Surgical | DX: M79.644 Pain in right finger(s) (principal); G89.29 Other chronic pain; S46.011A Strain of muscle(s) and tendon(s) of the rotator cuff of right shoulder, initial encounter; S46.012A Strain of muscle(s) and tendon(s) of the rotator cuff of left shoulder, initial encounter; S63.641A Sprain of metacarpophalangeal joint of right thumb, initial encounter; S16.1XXA Strain of muscle, fascia and tendon at neck level, initial encounter; X58.XXXA Exposure to other specified factors, initial encounter; Y92.9 Unspecified place or not applicable ==

== ENCOUNTER 2023-08-13 10:42 | Outpatient (RCR) | payer OTHER | END 2023-08-14 | LOC: M PT 10:42 | PROVIDERS: ATTEND Physician Assistant Surgical | DX: G89.29 Other chronic pain (principal); S46.011A Strain of muscle(s) and tendon(s) of the rotator cuff of right shoulder, initial encounter; S46.012A Strain of muscle(s) and tendon(s) of the rotator cuff of left shoulder, initial encounter; S63.641A Sprain of metacarpophalangeal joint of right thumb, initial encounter; S16.1XXA Strain of muscle, fascia and tendon at neck level, initial encounter ==

== ENCOUNTER 2023-09-11 08:30 | Outpatient (RCR) | payer OTHER | END 2023-09-14 | LOC: M PT 08:30 | PROVIDERS: ATTEND Physician Assistant Surgical | DX: M79.644 Pain in right finger(s) (principal); G89.29 Other chronic pain; S46.011A Strain of muscle(s) and tendon(s) of the rotator cuff of right shoulder, initial encounter; S46.012A Strain of muscle(s) and tendon(s) of the rotator cuff of left shoulder, initial encounter; S63.641A Sprain of metacarpophalangeal joint of right thumb, initial encounter; S16.1XXA Strain of muscle, fascia and tendon at neck level, initial encounter ==

== ENCOUNTER 2023-09-15 09:07 | Outpatient (RCR) | payer OTHER | END 2023-10-14 | LOC: M PT 09:07 | PROVIDERS: ATTEND Physician Assistant Surgical | DX: M79.644 Pain in right finger(s) (principal); G89.29 Other chronic pain; S46.011A Strain of muscle(s) and tendon(s) of the rotator cuff of right shoulder, initial encounter; S46.012A Strain of muscle(s) and tendon(s) of the rotator cuff of left shoulder, initial encounter; S63.641A Sprain of metacarpophalangeal joint of right thumb, initial encounter; S16.1XXA Strain of muscle, fascia and tendon at neck level, initial encounter; X58.XXXA Exposure to other specified factors, initial encounter; Y92.9 Unspecified place or not applicable ==

== ENCOUNTER → 2023-09-19 | Outpatient (CLI) | payer OTHER ==
[2023-09-19 18:36] LABS: BLOOD UREA NITROGEN 16 MG/DL (9-23); CALCIUM LEVEL 9.5 MG/DL (8.5-10.1); CARBON DIOXIDE LEVEL 30 MMOL/L (20-31); CHLORIDE LEVEL 104 MMOL/L (98-107); CREATININE FOR GFR 0.97 MG/DL (0.70-1.30); GLOMERULAR FILTRATION RATE > 60.0 (>56); GLUCOSE, FASTING 141 MG/DL (60-100); POTASSIUM SERUM 4.5 MMOL/L (3.5-5.1); SODIUM LEVEL 137 MMOL/L (136-145)
== END ==
LOC: M PLALAB 15:26
PROVIDERS: ATTEND Orthopaedic Surgery
DX: M75.101 Unspecified rotator cuff tear or rupture of right shoulder, not specified as traumatic (principal)

== ENCOUNTER 2023-10-08 08:21 | Outpatient (RCR) | payer OTHER | END 2023-10-14 | LOC: M PT 08:21 | PROVIDERS: ATTEND Orthopaedic Surgery | DX: Z51.89 Encounter for other specified aftercare (principal); Z98.890 Other specified postprocedural states ==

== ENCOUNTER 2023-11-12 11:06 | Outpatient (RCR) | payer OTHER ==
[~2023-11-12 11:06] MED LIST changes: +RAMI10CA64 PO; -RAMI1CAP26 PO
== END 2023-11-14 ==
LOC: M OT 11:06
PROVIDERS: ATTEND Orthopaedic Surgery
DX: Z51.89 Encounter for other specified aftercare (principal); Z98.890 Other specified postprocedural states

== ENCOUNTER 2023-11-13 08:30 | Outpatient (RCR) | payer OTHER | END 2023-11-14 | LOC: M PT 08:30 | PROVIDERS: ATTEND Orthopaedic Surgery | DX: Z51.89 Encounter for other specified aftercare (principal); Z98.890 Other specified postprocedural states ==

== ENCOUNTER 2023-12-11 08:30 | Outpatient (RCR) | payer OTHER | END 2023-12-14 | LOC: M PT 08:30 | PROVIDERS: ATTEND Orthopaedic Surgery | DX: Z51.89 Encounter for other specified aftercare (principal); Z98.890 Other specified postprocedural states ==

== ENCOUNTER 2024-01-08 07:00 | Outpatient (RCR) | payer OTHER | END 2024-01-14 | LOC: M PT 07:00 | PROVIDERS: ATTEND Orthopaedic Surgery | DX: Z47.89 Encounter for other orthopedic aftercare (principal) ==

== ENCOUNTER 2024-01-08 07:09 | Outpatient (RCR) | payer OTHER | END 2024-01-14 | LOC: M PT 07:09 | PROVIDERS: ATTEND Orthopaedic Surgery | DX: M54.50 Low back pain, unspecified (principal) ==

== ENCOUNTER 2024-02-10 07:00 | Outpatient (RCR) | payer OTHER | END 2024-02-14 | LOC: M PT 07:00 | PROVIDERS: ATTEND Orthopaedic Surgery | DX: Z47.89 Encounter for other orthopedic aftercare (principal) ==

== ENCOUNTER 2024-02-10 07:01 | Outpatient (RCR) | payer OTHER | END 2024-02-14 | LOC: M PT 07:01 | PROVIDERS: ATTEND Orthopaedic Surgery | DX: M54.50 Low back pain, unspecified (principal) ==

== ENCOUNTER 2024-03-08 07:00 | Outpatient (RCR) | payer OTHER | END 2024-03-15 | LOC: M PT 07:00 | PROVIDERS: ATTEND Orthopaedic Surgery | DX: M25.511 Pain in right shoulder (principal); Z47.89 Encounter for other orthopedic aftercare ==

== ENCOUNTER 2024-03-08 07:25 | Outpatient (RCR) | payer OTHER | END 2024-03-15 | LOC: M PT 07:25 | PROVIDERS: ATTEND Orthopaedic Surgery | DX: M54.50 Low back pain, unspecified (principal) ==

== ENCOUNTER → 2024-04-09 | Outpatient (CLI) | payer OTHER ==
[2024-04-09 11:43] LABS: HEMATOCRIT 50.6 % (42.0-52.0); HEMOGLOBIN 16.8 g/dl (13.5-17.5); MEAN CORPUSCULAR HEMOGLOBIN 29.2 pg (27.0-33.0); MEAN CORPUSCULAR HGB CONC 33.2 g/dl (32.0-36.5); PLATELET COUNT, AUTOMATED 193 10^3/uL (150-450); RED BLOOD COUNT 5.75 10^6/uL (4.30-6.10); WHITE BLOOD COUNT 11.1 10^3/uL (4.0-10.0)
[2024-04-09 11:57] LABS: HEMOGLOBIN A1c 6.3 % (4.0-6.0)
[2024-04-09 12:07] LABS: ALKALINE PHOSPHATASE 76 U/L (40-129); ALT/SGPT 36 U/L (7.0-40); AST/SGOT 14 U/L (<34); BILIRUBIN,TOTAL 0.7 MG/DL (0.3-1.2); BLOOD UREA NITROGEN 16 MG/DL (9-23); CALCIUM LEVEL 9.7 MG/DL (8.5-10.1); CARBON DIOXIDE LEVEL 29 MMOL/L (20-31); CHLORIDE LEVEL 106 MMOL/L (98-107); CHOLESTEROL LEVEL 148 MG/DL (<200); CHOLESTEROL RISK RATIO 5.69 (<5); CREATININE FOR GFR 0.79 MG/DL (0.70-1.30); GLOMERULAR FILTRATION RATE > 60.0 (>56); GLUCOSE, FASTING 121 MG/DL (60-100); LDL CHOLESTEROL 72.6 MG/DL (<100); POTASSIUM SERUM 4.5 MMOL/L (3.5-5.1); SODIUM LEVEL 141 MMOL/L (136-145); TOTAL PROTEIN 6.7 G/DL (5.7-8.2); TRIGLYCERIDES LEVEL 247 MG/DL (<150)
[2024-04-09 12:08] LABS: TOTAL 25(OH) VITAMIN D 36.7 NG/ML (20.0-100.0)
[2024-04-09 12:09] LABS: THYROID STIMULATING HORMONE 2.132 uIU/ML (0.55-4.78)
[2024-04-09 12:15] LABS: CREATININE, URINE 97.8 MG/DL
[2024-04-09 12:28] LABS: MAU/CREAT RATIO 7.1 MCG/MG (0.0-30.0)
== END ==
LOC: M PLALAB 08:25
PROVIDERS: ATTEND Family Medicine
DX: G47.33 Obstructive sleep apnea (adult) (pediatric) (principal); I10 Essential (primary) hypertension; E55.9 Vitamin D deficiency, unspecified; E78.00 Pure hypercholesterolemia, unspecified; E11.9 Type 2 diabetes mellitus without complications; Z13.29 Encounter for screening for other suspected endocrine disorder

== ENCOUNTER → 2024-04-09 | Outpatient (CLI) | payer OTHER ==
[2024-04-09 11:58] LABS: HEMOGLOBIN A1c 6.4 % (4.0-6.0)
[2024-04-09 12:07] LABS: ALKALINE PHOSPHATASE 76 U/L (40-129); ALT/SGPT 37 U/L (7.0-40); AST/SGOT 13 U/L (<34); BILIRUBIN,TOTAL 0.7 MG/DL (0.3-1.2); BLOOD UREA NITROGEN 17 MG/DL (9-23); CALCIUM LEVEL 9.4 MG/DL (8.5-10.1); CARBON DIOXIDE LEVEL 29 MMOL/L (20-31); CHLORIDE LEVEL 106 MMOL/L (98-107); CHOLESTEROL LEVEL 148 MG/DL (<200); CHOLESTEROL RISK RATIO 5.71 (<5); CREATININE FOR GFR 0.82 MG/DL (0.70-1.30); GLOMERULAR FILTRATION RATE > 60.0 (>56); GLUCOSE, FASTING 121 MG/DL (60-100); HDL CHOLESTEROL 25.9 MG/DL (>40); LDL CHOLESTEROL 72.9 MG/DL (<100); NON-HDL-C 122.1 MG/DL; POTASSIUM SERUM 4.5 MMOL/L (3.5-5.1); SODIUM LEVEL 140 MMOL/L (136-145); TOTAL PROTEIN 6.7 G/DL (5.7-8.2); TRIGLYCERIDES LEVEL 246 MG/DL (<150)
[2024-04-09 12:09] LABS: TOTAL 25(OH) VITAMIN D 43.2 NG/ML (20.0-100.0)
== END ==
LOC: M PLALAB 08:23
PROVIDERS: ATTEND Nurse Practitioner Family
DX: E11.9 Type 2 diabetes mellitus without complications (principal); E55.9 Vitamin D deficiency, unspecified; E78.2 Mixed hyperlipidemia